=== PATIENT | male | born 1955 | race Hispanic/Latino ===

== ENCOUNTER → 2020-07-23 | Outpatient (CLI) | payer BC ==
[~2020-07-23] MED LIST: ALLOPURINOL300 MG PO; COLCRYS0.6 MG PO; MELOXICAM7.5 MG PO; METOPROLOL TART25 MG PO; ONGLYZA2.5 MG PO; PENTOXIFYLLINE400 MG PO
== END ==
LOC: CT 14:40
PROVIDERS: ATTEND Family Medicine
DX: R10.0 Acute abdomen (principal)

== ENCOUNTER 2024-05-27 12:45 | Outpatient (RCR) | payer MEDICARE | END 2024-05-29 | LOC: PT 12:45 | PROVIDERS: ATTEND Nurse Practitioner Family | DX: M54.41 Lumbago with sciatica, right side (principal) ==

== ENCOUNTER 2024-06-27 14:46 | Outpatient (RCR) | payer MEDICARE | END 2024-06-29 | LOC: PT 14:46 | PROVIDERS: ATTEND Nurse Practitioner Family | DX: M54.41 Lumbago with sciatica, right side (principal) ==

== ENCOUNTER 2024-07-04 07:39 | Outpatient (RCR) | payer MEDICARE | END 2024-07-30 | LOC: PT 07:39 | PROVIDERS: ATTEND Nurse Practitioner Family | DX: M54.41 Lumbago with sciatica, right side (principal) ==

== ENCOUNTER → 2025-03-09 | Day surgery (SDC) | payer BC, MEDICARE ==
[2025-03-07 12:02] LABS: BASOPHILS # (AUTO) 0.1 (0.0-0.1); BASOPHILS % 0.8 % (0.0-1.0); EOSINOPHILS # (AUTO) 0.2 (0.0-0.4); EOSINOPHILS % 2.2 % (0.0-6.0); HEMATOCRIT 42.5 % (38.2-49.6); HEMOGLOBIN 14.6 g/dL (14.0-18.0); LYMPHOCYTES # (AUTO) 2.5 (1.0-3.2); LYMPHOCYTES % 32.7 % (18.0-39.1); MEAN CORPUSCULAR HEMOGLOBIN 31.1 pg (28-32); MEAN CORPUSCULAR HGB CONC 34.4 g/dL (31-35); MEAN CORPUSCULAR VOLUME 90.4 fL (81-99); MONOCYTES # (AUTO) 0.4 (0.2-0.8); MONOCYTES % 5.5 % (4.4-11.3); NEUTROPHILS # (AUTO) 4.4 (2.1-6.9); NEUTROPHILS % 58.3 % (38.7-80.0); PLATELET COUNT 207 x10e3/uL (140-360); RED CELL DISTRIBUTION WIDTH 12.7 % (11.7-14.4); WHITE BLOOD COUNT 7.59 x10e3/uL (4.8-10.8)
[2025-03-07 12:24] LABS: ANION GAP 13.8 mmol/L (8-16); CALCIUM 8.7 mg/dL (8.4-10.2); CREATININE, SERUM 1.21 mg/dL (0.72-1.25); POTASSIUM 3.8 mmol/L (3.5-5.1)
[~2025-03-09] MED LIST changes: +ASPIRIN81 MG PO; +CARVEDILOL3.125 MG PO; +CYCLOBENZAPRINE10 MG PO; +CYCLOPENTOLATE HCL 2% OPTH SOLN 2 ML BTL OP ONE; +DEXAMETHASONE SOD PHOS INJ 4 MG/ML SDV ONE; +FENTANYL CITRATE/PF 100MCG/2 ML INJ ONE; +GATIFLOXACIN(OPTH) 5 ML LIQD ONE; +GLYCOPYRROLATE INJ 0.2 MG/ML VIAL ONE; +LEVOCETIRIZINE D5 MG PO; +LIDOCAINE HCL 2% LOCAL INJ 5 ML SDV VIAL INJ ONE; +LOSARTAN-HCTZ1 EAC1 PO; +MAGNESIUM OXID400 MG PO; +METFORMIN HCL500 MG PO; +MIDAZOLAM HCL 2 MG/2 ML VIAL ONE; +ONDANSETRON HCL INJ 2MG/ML 2ML 2 MG/ML VIAL ONE; +OZEMPIC0.25 MG/02 SQ; +PHENYLEPHRINE HCL 2 ML DROPS ONE; +PRAVASTATIN SOD20 MG PO; +PROPOFOL IV EMULSION 50 ML IV ONE
[2025-03-09] MEDS: LACTATED RINGER'S 1,000 ML ONE (07:53)
[2025-03-09 09:21] VITALS: TEMP 98
[2025-03-09 09:40] VITALS: BP 161/77; PULSE 64; RESP 16; O2SAT 97
== END | disposition home or self-care (01) ==
LOC: OR 05:51
PROVIDERS: ATTEND Ophthalmology
DX: H25.11 Age-related nuclear cataract, right eye (principal); G47.33 Obstructive sleep apnea (adult) (pediatric); E11.9 Type 2 diabetes mellitus without complications; I10 Essential (primary) hypertension; E78.5 Hyperlipidemia, unspecified; K21.9 Gastro-esophageal reflux disease without esophagitis; K75.9 Inflammatory liver disease, unspecified; M10.9 Gout, unspecified; Z01.810 Encounter for preprocedural cardiovascular examination; Z01.812 Encounter for preprocedural laboratory examination; Z79.82 Long term (current) use of aspirin; Z79.84 Long term (current) use of oral hypoglycemic drugs; Z79.85 Long-term (current) use of injectable non-insulin antidiabetic drugs; Z79.899 Other long term (current) drug therapy; Z87.891 Personal history of nicotine dependence
CPT/HCPCS: 36415 ×2; 66984; 80048; 82948; 85025; 93005; J1100; J2003; J2250; J2405; J2704; J3010; J7121; V2632